=== PATIENT | female | born 1970 | race Caucasian/White ===

== ENCOUNTER 2019-06-17 18:04 | Emergency (ER) | payer MEDICAID, SELFPAY ==
--- NOTE | ~2019-06-17 | CT_ITS ---
EXAMINATION: CT abdomen pelvis w con EXAM DATE: 06/17/2019 20:55 INDICATION: Left lower quadrant abdominal pain. TECHNIQUE: Spiral CT of the abdomen and pelvis was performed following intravenous injection of 100 m L Omnipaque 350. Axial, coronal and sagittal images were reviewed. The dose-length product (DLP) fo r this examination was 1561.66 mGy-cm. The exposure was tailored according to patient size (auto mA exposure control), and iterative reconstruction (ASIR) was used as additional dose reduction techniqu e. There is no prior study for comparison. FINDINGS: The liver, spleen, adrenal glands and pancreas are unremarkable. The gallbladder is disten ded but otherwise unremarkable. There is no biliary duct dilation. Portal and splenic veins are pat ent. Kidneys enhance symmetrically. There is no hydronephrosis. There is 5 mm left inferior calycea l stone. The uterus is not identified and has likely been surgically resected. The bladder is unrem arkable. There is no retroperitoneal or pelvic lymphadenopathy. The appendix is normal. There is mild sigmoid colonic diverticulosis. There is no adjacent inflammat ory change to suggest diverticulitis. The stomach and small bowel are unremarkable. There is expecte d amount of colonic stool. No free intraperitoneal gas. The heart is normal in size. There are n o pericardial or pleural effusions. Small amount of basilar subsegmental atelectasis. There are no osteoblastic or osteolytic lesions identified. IMPRESSION: 1. No acute intra-abdominal findings. 2. Left nephrolithiasis. 3. Mild sigmoid diverticulosis. Reviewed, dictated and finalized at location G.
[2019-06-17 18:12] VITALS: BP 125/67; PULSE 88; RESP 16; TEMP 36.6; O2SAT 98
[2019-06-17 18:22] LABS: Basophils Percent Auto 0.2 % (0.2-1.2); Eosinophils Absolute Auto 0.1 K/mm3 (0-0.3); Eosinophils Percent Auto 0.6 % (0-4.4); Hemoglobin 12.3 g/dL (12.0-15.0); Immature Granulocyte Absolute 0.05 K/mm3 (0.00-0.031); Immature Granulocyte Percent A 0.4 % (0-0.5); Lymphocytes Absolute Auto 1.69 K/mm3 (0.9-3.2); Lymphocytes Percent Auto 15.1 % (18.3-44.2); Mean Corpuscular HGB Conc 32.4 g/dl (32-36); Mean Corpuscular Hemoglobin 32.1 pg (26-34); Mean Corpuscular Volume 99.2 fl (80-100); Mean Platelet Volume 9.5 fl (7.4-10.4); Monocytes Absolute Auto 0.7 K/mm3 (0.1-0.6); Monocytes Percent Auto 6.1 % (2.6-8.5); Neutrophils Absolute Auto 8.7 K/mm3 (1.3-6.7); Neutrophils Percent Auto 77.6 % (45.5-73.1); Platelet Count Result 230 k/mm3 (150-375); Red Blood Count 3.83 M/mm3 (4.2-5.4); Red Cell Distribution Width 13.3 % (11.5-14.5); White Blood Count 11.2 K/mm3 (4.5-10.0)
[2019-06-17 18:50] LABS: Alanine Aminotransferase 15 U/L (4-35); Alkaline Phosphatase 104 U/L (38-126); Aspartate Amino Transferase 21 U/L (14-36); Bilirubin,Total 0.3 mg/dL (0.2-1.3); Blood Urea Nitrogen 11 mg/dL (7-17); Calcium 8.8 mg/dL (8.4-10.2); Carbon Dioxide 29 mmol/L (22-30); Chloride 101 mmol/L (98-107); Estimated CRCL calculation 166 ml/min; Estimated Glomerular Filt Rate > 60; Glucose 145 mg/dL (65-105); Lipase 40 U/L (23-300); Sodium 133 mmol/L (137-145)
--- NOTE | 2019-06-17 20:14 | ED.ABDPAIN ---
HPI - Abdominal Pain General Chief Complaint: Abdominal Pain Stated Complaint: ABD PAIN, BOWEL/BLADDER ISSUES Time Seen by Provider: 06/17/19 19:40 Source: patient and family Mode of arrival: ambulatory Limitations: no limitations History of Present Illness HPI narrative: Patient is a 48-year-old female with a history of diverticulitis who presents for evaluation of suprapubic abdominal pain. Patient reports a weeklong history of intermittent worsening urinary frequency, hematuria, pressure-like pain in the lower abdomen, patient also has some left lower quadrant abdominal pain and she was concerning for possible diverticulitis flare. Patient denies fever or chills. No nausea or vomiting. No abdominal distention. Patient does report some mild loose stools without blood or mucus present. Related Data Allergies Allergy/AdvReac Type Severity Reaction Status Date / Time aspirin Allergy Unknown Nausea and Verified 06/17/19 21:18 Vomiting Review of Systems Review of Systems: Narrative: CONSTITUTIONAL: Denies fever, chills, or sweats. EYES: Denies visual changes, redness, or discharge. ENT: Denies rhinorrhea, congestion, sore throat, or otalgia. CARDIOVASCULAR: Denies chest pain, palpitations, or edema. RESPIRATORY: Denies cough or dyspnea. GASTROINTESTINAL: Reports abdominal pain, denies nausea or vomiting, reports intermittent loose stools GENITOURINARY: Reports dysuria, hematuria and frequency SKIN: Denies rash or itching. MUSCULOSKELETAL: Denies back pain, joint pain, or myalgia. NEUROLOGIC: Reports mild headache, denies numbness or weakness PMFSH Past Medical History Medical History (Updated 06/17/19 @ 22:00 by Maria Fernanda Madison MD) Breast abscess Diverticulitis Surgical History Surgical History (Updated 06/17/19 @ 20:16 by Maria Fernanda Madison MD) H/O: hysterectomy Family History Family History Mother Depression Family history of eczema Patient's mother is in good health Cerebrovascular accident Asthma Father Patient's father is in good health Family history of hearing loss Sibling Patient's sister is in good health Patient's brother is in good health Grandparent Family history of malignant neoplasm Other Family history of alcoholism Social History Social History (Updated 06/17/19 @ 20:16 by Maria Fernanda Madison MD) Smoking status: Current every day smoker Alcohol intake: current Substance use: current Substance use type: marijuana Living arrangements: with family Gender identity (if verbalized by the patient): Female Exam Narrative: Exam Narrative: GENERAL: Awake, alert, conversant HEAD: Normocephalic, atraumatic. EYES: 2+ PERRLA and EOMI. ENT: Nares clear, no rhinorrhea or epistaxis. Mucous membranes moist. NECK: Supple. CHEST: No respiratory distress, breathing even and non labored HEART: Regular rate, sinus rhythm ABDOMEN: Obese abdomen, non distended, mild suprapubic tenderness, no rebound, no guarding, nonrigid EXTREMITIES: Normal range of motion. No edema. SKIN: Warm, dry, no rash. NEURO:No focal deficits. Alert and oriented x3. Pt without focal neurological deficits. Bilateral upper and lower extremity strength is 5/5. No facial droop. 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 Intact distal sensation. Ambulatory with a narrow based steady gait. Course Course Emergency Course: Patient presented for evaluation of abdominal pain and urinary symptoms. Patient also reporting a mild headache without any neurological deficits. At the time of initial assessment, ABCs are intact and vital signs are stable. Physical exam shows mild left lower quadrant tenderness and suprapubic tenderness without rigidity and guarding. Laboratory results are reassuring. Patient was given a Tylenol for her headache, and imaging shows no acute intra-abdominal pathology. No UTI. Patient without any neuro deficits to suggest intracranial mass or hemo
[2019-06-17 20:19] LABS: Add Urine Microscopic? NO; Appearance Urine Clear (Clear); Bilirubin Urine Negative (Negative); Blood Urine Negative (Negative); Color Urine Straw (Yellow); Glucose Urine UA Negative (Negative); Ketones Urine Negative (Negative); Leukocyte Esterase Ur Negative LEU/UL (Negative); Nitrate Urine Negative (Negative); Protein Urine Negative (Negative); Specific Grav Ur 1.012 (1.001-1.035); Urobilinogen Urine Negative mg/dL (<2.0)
[2019-06-17] MEDS: ACETAMINOPHEN 500 MG TABLET 1000 MG PO (21:26)
[2019-06-17 21:40] VITALS: BP 131/103; PULSE 88; RESP 18; O2SAT 97
[2019-06-17 22:00] VITALS: BP 134/89; PULSE 89; RESP 18; TEMP 36.7; O2SAT 98
== END 2019-06-17 22:01 | disposition home or self-care (01) ==
PROVIDERS: Emergency Provider Emergency Medicine
DX: R10.32 Left lower quadrant pain (principal); G44.219 Episodic tension-type headache, not intractable; K57.90 Diverticulosis of intestine, part unspecified, without perforation or abscess without bleeding; N20.0 Calculus of kidney; F17.200 Nicotine dependence, unspecified, uncomplicated
CPT/HCPCS: 36415; 74177; 80053; 81003; 81025; 83690; 85025; 99284; A9270; Q9967

== ENCOUNTER 2019-12-10 12:02 | Outpatient (CLI) | payer OTHER, SELFPAY ==
--- NOTE | ~2019-12-10 | MMUS_ITS ---
EXAMINATION: MM diagnostic cyndie BI w ivette, US breast LT limited HISTORY: Left breast nipple discharge TECHNIQUE: Craniocaudal, mediolateral, and mediolateral oblique 3-D tomosynthesis images of the yohana ts were performed and synthetic 2-D images were generated. CAD analysis was submitted and interpreted . High resolution limited left breast ultrasound was performed. COMPARISON: No prior mammogram is currently available for comparison. FINDINGS: MAMMOGRAPHIC FINDINGS: Left breast: No mammographic correlate is identified for the patient's reported left nipple discharge . There is a 9 mm low-density oval, obscured mass of the lower inner breast at the 7:00 location 6 cm from the nipple. Right breast: There are grouped amorphous calcifications in the posterior third of the upper inner qu adrant of the breast at the 1:00 location 13 cm from the nipple. ULTRASOUND: No suspicious cystic or solid mass is identified to correlate with the left breast nipple discharge o r mammographically detected mass. IMPRESSION: 1. No specific mammographic or sonographic correlate is identified for the patient's left nipple disc harge Further evaluation at this time should be based on clinical assessment. Continued follow-up phy sical examination is recommended. 2. Suspicious right breast calcifications. Stereotactic biopsy is recommended. BI-RADS category 4, suspicious findings. Reviewed, dictated and finalized at location A. IMPRESSION: 1. No specific mammographic or sonographic correlate is identified for the sarah ent's left nipple discharge Further evaluation at this time should be based on clinical assessment. Continued follow-up physical examination is recommended. 2. Suspicious right breast calcifications. Stereotactic biopsy is recommended. BI-RADS category 4, suspicious findings.
[2019-12-10 12:48] LABS: Basophils Percent Auto 0.5 % (0.2-1.2); Eosinophils Absolute Auto 0.1 K/mm3 (0-0.3); Eosinophils Percent Auto 1.2 % (0-4.4); Hematocrit 42.5 % (37.0-47.0); Hemoglobin 14.1 g/dL (12.0-15.0); Immature Granulocyte Absolute 0.02 K/mm3 (0.00-0.031); Immature Granulocyte Percent A 0.2 % (0-0.5); Lymphocytes Percent Auto 34.4 % (18.3-44.2); Mean Corpuscular HGB Conc 33.2 g/dl (32-36); Mean Corpuscular Hemoglobin 32.7 pg (26-34); Mean Corpuscular Volume 98.6 fl (80-100); Mean Platelet Volume 9.1 fl (7.4-10.4); Monocytes Absolute Auto 0.5 K/mm3 (0.1-0.6); Neutrophils Absolute Auto 4.7 K/mm3 (1.3-6.7); Neutrophils Percent Auto 57.7 % (45.5-73.1); Platelet Count Result 269 k/mm3 (150-375); Red Blood Count 4.31 M/mm3 (4.2-5.4); Red Cell Distribution Width 12.7 % (11.5-14.5); White Blood Count 8.2 K/mm3 (4.5-10.0)
[2019-12-10 13:02] LABS: Anion Gap 5 mmol/L (8-16); Blood Urea Nitrogen 11 mg/dL (7-17); CRP 0.8 mg/dL (<1.0); Calcium 8.9 mg/dL (8.4-10.2); Carbon Dioxide 30 mmol/L (22-30); Chloride 107 mmol/L (98-107); Estimated Glomerular Filt Rate > 60; Glucose 100 mg/dL (65-105); Potassium 4.3 mmol/L (3.4-5.0); Rheumatoid Factor < 8.6 IU/ML (<12); Sodium 142 mmol/L (137-145)
[2019-12-10 13:14] LABS: Erythrocyte Sedimentation Rate 19 mm/hr (0-20)
[2019-12-14 11:26] LABS: Anti Cyclic Citrullinated Pept <16 Units (<20)
== END 2019-12-10 12:03 | disposition home or self-care (01) ==
PROVIDERS: PCP Internal Medicine Infectious Disease; Visit Provider Internal Medicine Infectious Disease
DX: N63.10 Unspecified lump in the right breast, unspecified quadrant (principal); M25.50 Pain in unspecified joint; Z79.899 Other long term (current) drug therapy
CPT/HCPCS: 36415; 76642; 77062; 77066; 80048; 85025; 85652; 86038; 86140; 86200; 86430; G0279

== ENCOUNTER 2019-12-29 10:03 | Outpatient (CLI) | payer OTHER, SELFPAY ==
--- NOTE | ~2019-12-29 | XR_ITS ---
EXAMINATION: XR hand LT min 3V, XR wrist LT min 3V EXAM DATE: 12/29/2019 11:03 (accession [id number]), 12/29/2019 11:04 (accession [id number]) INDICATION: No known recent injury provided at this time. Pain of the left hand and wrist. TECHNIQUE: Left hand frontal, lateral and oblique projections obtained and reviewed. Left wrist fron valentín, frontal with ulnar deviation, oblique and lateral projections obtained and reviewed. There is n o prior study for comparison. FINDINGS: Left metacarpal bones are unremarkable. Left wrist scapholunate joint space is maintained . There is moderate 5th distal interphalangeal joint, mild 1st interphalangeal joint primary osteoart hritis. There are no bony erosions identified. There are no acute fractures or dislocations identifi ed. There is no subcutaneous gas. The soft tissue is unremarkable. There are no radiopaque foreig n bodies. 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 Reviewed, dictated and finalized at location A. 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
--- NOTE | ~2019-12-29 | XR_ITS ---
EXAMINATION: XR hand RT min 3V, XR wrist RT min 3V EXAM DATE: 12/29/2019 11:04 INDICATION: No known recent injury provided at this time. Pain of the right hand, wrist. TECHNIQUE: Right hand frontal, lateral and oblique projections obtained and reviewed. Right wrist fro ntal, frontal with ulnar deviation, oblique and lateral projections obtained and reviewed. There is no prior study for comparison. FINDINGS: Right metacarpal bones are unremarkable. Right wrist scapholunate joint space is maintain ed. There is mild 1st interphalangeal and metacarpophalangeal primary osteoarthritis. There are no bony erosions identified. There are no acute fractures or dislocations identified. There is no subcutaneo us gas. The soft tissue is unremarkable. There are no radiopaque foreign bodies. IMPRESSION: Mild 1st interphalangeal joint osteoarthritis. Reviewed, dictated and finalized at location A. S DEALER IMPRESSION: Mild 1st interphalangeal joint osteoarthritis.
--- NOTE | ~2019-12-29 | XR_ITS ---
EXAMINATION: XR shoulder RT min 2V EXAM DATE: 12/29/2019 11:03 INDICATION: Right shoulder pain, no known recent injury. TECHNIQUE: The following right shoulder projections obtained: frontal projection with internal rotati on, frontal projection with external rotation, Grashey, and axillary (4+ views). There is no prior s tudy for comparison. FINDINGS: No evidence of right shoulder rotator cuff calcific tendinosis. There is mild glenohumer al and acromioclavicular joint primary osteoarthritis. There are no acute fractures or dislocations i dentified. There is no subcutaneous gas. The soft tissue is unremarkable. There are no radiopaque foreign bodies. Probable old right 4th and 5th rib fractures. IMPRESSION: Mild right shoulder osteoarthritis. Reviewed, dictated and finalized at location A. TING FRAME CHANGER
--- NOTE | ~2019-12-29 | XR_ITS ---
EXAMINATION: XR knee LT min 4V EXAM DATE: 12/29/2019 11:03 INDICATION: No known recent injury provided at this time. Pain of the left knee. TECHNIQUE: Left knee lateral, frontal AP, frontal PA tunnel, sunrise projections. There is no prior study for comparison. FINDINGS: No evidence osteochondral defect or joint body in the left knee joint. There is mild fabian llofemoral and medial tibiofemoral compartment primary osteoarthritis. No joint effusion. There are no acute fractures or dislocations identified. There is no subcutaneous gas. The soft tissue is unr emarkable. There are no radiopaque foreign bodies. IMPRESSION: Mild left knee osteoarthritis. Reviewed, dictated and finalized at location A. RESSED GAS PLANT WORKER
--- NOTE | ~2019-12-29 | XR_ITS ---
EXAMINATION: XR ankle LT min 3V, XR foot LT min 3V EXAM DATE: 12/29/2019 11:03 (accession [id number]), 12/29/2019 11:04 (accession [id number]) INDICATION: Chronic left foot, ankle pain. TECHNIQUE: Left foot dorsoplantar, lateral and oblique projections obtained and reviewed. Left ankle frontal, lateral and oblique projections obtained and reviewed. There is no prior study for compari son. FINDINGS: Left metatarsal bones unremarkable. The left ankle mortise appears intact. There is sm all inferior calcaneal spur. There is mild 1st metatarsophalangeal and polyarticular midfoot primary osteoarthritis. There are no acute fractures or dislocations identified. There is no subcutaneous ga s. The soft tissue is unremarkable. There are no radiopaque foreign bodies. IMPRESSION: Mild polyarticular left foot and ankle osteoarthritis. Reviewed, dictated and finalized at location A. WINDER IMPRESSION: Mild polyarticular left foot and ankle osteoarthritis.
--- NOTE | ~2019-12-29 | XR_ITS ---
EXAMINATION: XR ankle RT min 3V, XR foot RT min 3V EXAM DATE: 12/29/2019 11:03 (accession [id number]), 12/29/2019 11:04 (accession [id number]) INDICATION: Chronic right foot and ankle pain. TECHNIQUE: Right foot dorsoplantar, lateral and oblique projections obtained and reviewed. Right ank le frontal, lateral and oblique projections obtained and reviewed. There is no prior study for too oden. FINDINGS: Right metatarsal bones unremarkable. The right ankle mortise appears intact. There are n o acute fractures or dislocations identified. There is no subcutaneous gas. The soft tissue is unre markable. There are no radiopaque foreign bodies. Small calcaneal inferior spur. There is mild 1st metatarsophalangeal joint and polyarticular midfoot primary osteoarthritis. IMPRESSION: Mild polyarticular right foot, ankle osteoarthritis. Reviewed, dictated and finalized at location A. CTOR DIGITAL STRATEGY IMPRESSION: Mild polyarticular right foot, ankle osteoarthritis.
--- NOTE | ~2019-12-29 | XR_ITS ---
EXAMINATION: XR knee RT min 4V EXAM DATE: 12/29/2019 11:03 INDICATION: No known recent injury provided at this time. Pain of the right knee. TECHNIQUE: Right knee lateral, frontal AP, frontal PA tunnel, sunrise projections. There is no prior study for comparison. FINDINGS: No evidence osteochondral defect or joint body in the right knee joint. No joint effusio n. There is mild tricompartmental primary osteoarthritis. There are no acute fractures or dislocation s identified. There is no subcutaneous gas. The soft tissue is unremarkable. There are no radiopa que foreign bodies. IMPRESSION: Mild right knee osteoarthritis. Reviewed, dictated and finalized at location A. ST SUSPECT
== END 2019-12-29 10:04 | disposition home or self-care (01) ==
LOC: ANHIMG 10:12
PROVIDERS: PCP Internal Medicine Infectious Disease; Visit Provider Internal Medicine Infectious Disease
DX: M79.10 Myalgia, unspecified site (principal); M89.49 Other hypertrophic osteoarthropathy, multiple sites
CPT/HCPCS: 73030; 73110; 73130; 73564; 73610; 73630

== ENCOUNTER 2020-12-13 13:34 | Inpatient (IN) | payer OTHER, SELFPAY ==
[2020-12-13] VITALS (20 sets, daily range): BP systolic 107–154; BP diastolic 64–109; PULSE 78–91; RESP 12–20; TEMP 36.1–36.8; O2SAT 97–100; BMI 52.0
--- NOTE | ~2020-12-13 | XR_ITS ---
XR chest 2V DATE: 12/13/2020 15:04 INDICATION: Chest pain, shortness of breath, dizziness. TECHNIQUE: AP and lateral views COMPARISON: 08/22/2010 2 view chest FINDINGS: Normal heart size. No hilar or mediastinal enlargement. No pulmonary infiltrate or consolid ation, pleural effusion or pulmonary vascular congestion or pneumothorax. Diffuse idiopathic skeletal hyperostosis of the thoracic spine. IMPRESSION: No active cardiopulmonary disease Reviewed, dictated and finalized at location A.
--- NOTE | ~2020-12-13 | CT_ITS ---
EXAMINATION: CT brain wo con INDICATION: Headache COMPARISON: None TECHNIQUE: Standard unenhanced head CT. The dose-length product (DLP) was 605.33 mGy-cm. The mA was a djusted according to patient size. Iterative reconstruction technique was employed. FINDINGS: There is no intracranial hemorrhage, acute infarction, or abnormal mass lesion. The ventric les are normal. There is no abnormal mass effect or midline shift. The alvarado-white matter differentiat ion is normal. The basal cisterns are patent. The orbits are normal. The paranasal sinuses, mastoids and calvarium are normal. IMPRESSION: 1. No acute intracranial abnormality. Reviewed, dictated and finalized at location B.
--- NOTE | ~2020-12-13 | CT_ITS ---
EXAMINATION: CT chest abdomen pelvis wo con DATE: 12/15/2020 22:49 INDICATION: Chest pain and back pain for 2 days TECHNIQUE: Computed tomography (CT) of the chest, abdomen, and pelvis was performed without intraveno us contrast. Automated exposure control and iterative reconstruction technique were employed. Exam do se: 1846.90 mGy-cm total exam DLP. COMPARISON: 12/30/2020 AP and lateral chest 06/17/2019 CT abdomen pelvis FINDINGS: CHEST CT: There are scattered focal small peripheral areas of atelectasis and/or scarring bilaterally. No pulmonary infiltrate or consolidation or pulmonary mass lesion. No hilar or mediastinal mass lesion or lymphadenopathy. No thoracic aortic aneurysm. Normal heart siz e. No pericardial or pleural effusion. Diffuse idiopathic skeletal hyperostosis of the thoracic spine. ABDOMEN/PELVIS CT: The liver, gallbladder, bile ducts, spleen, pancreas and pancreatic duct are unremarkable. Normal morphology of the adrenal glands. 5 mm nonobstructing lower pole left renal calculus. No other urinary tract calculus or hydroureterone phrosis. The urinary bladder is unremarkable. Status post hysterectomy. Normal caliber of the abdominal aorta. No intraperitoneal or retroperitoneal or pelvic mass lesion or adenopathy or ascites. Normal appendix. There are multiple diverticula of the sigmoid colon; no CT evidence of diverticulitis. No bowel obstr uction or bowel wall thickening, pneumatosis or intraperitoneal free air. Very small fat-containing umbilical hernia. IMPRESSION: 5 mm nonobstructing lower pole left renal calculus Status post hysterectomy Diverticulosis of the sigmoid colon; no CT evidence of diverticulitis Reviewed, dictated and finalized at Location A. Reviewed, dictated and finalized at location A.
--- NOTE | 2020-12-13 13:49 | ECG_ITS ---
Measurements Intervals [place] Rate: 80 P: 16 DE: 153 QRS: 42 QRSD: 101 T: 51 QT: 388 QTc: 448 Interpretive Statements SINUS RHYTHM DELAYED PRECORDIAL R/S TRANSITION BASELINE WANDER- V1-V2 BORDERLINE ECG Electronically Signed On 12-13-2020 14:21:40 CDT by Ruben Damico D.O.
[2020-12-13 14:16] LABS: Basophils Percent Auto 0.4 % (0.2-1.2); Eosinophils Absolute Auto 0.1 K/mm3 (0-0.3); Hematocrit 44.8 % (37.0-47.0); Hemoglobin 14.7 g/dL (12.0-15.0); Immature Granulocyte Absolute 0.02 K/mm3 (0.00-0.031); Immature Granulocyte Percent A 0.2 % (0-0.5); Lymphocytes Percent Auto 34.2 % (18.3-44.2); Mean Corpuscular HGB Conc 32.8 g/dl (32-36); Mean Corpuscular Hemoglobin 32.6 pg (26-34); Mean Corpuscular Volume 99.3 fl (80-100); Mean Platelet Volume 9.4 fl (7.4-10.4); Monocytes Absolute Auto 0.7 K/mm3 (0.1-0.6); Monocytes Percent Auto 6.7 % (2.6-8.5); Neutrophils Absolute Auto 6.4 K/mm3 (1.3-6.7); Neutrophils Percent Auto 57.5 % (45.5-73.1); Platelet Count Result 299 k/mm3 (150-375); Red Blood Count 4.51 M/mm3 (4.2-5.4); Red Cell Distribution Width 12.8 % (11.5-14.5); White Blood Count 11.1 K/mm3 (4.5-10.0)
[2020-12-13 14:31] LABS: INR 0.9
[2020-12-13 14:32] LABS: Partial Thromboplastin Time 28.4 SECONDS (22.3-36.8)
[2020-12-13 14:34] LABS: Anion Gap 9 mmol/L (8-16); Blood Urea Nitrogen 12 mg/dL (7-17); Calcium 9.5 mg/dL (8.4-10.2); Carbon Dioxide 27 mmol/L (22-30); Chloride 105 mmol/L (98-107); Estimated CRCL calculation 112 ml/min; Estimated Glomerular Filt Rate > 60; Glucose 113 mg/dL (65-110); Potassium 4.3 mmol/L (3.4-5.0); Sodium 141 mmol/L (137-145)
[2020-12-13 14:45] LABS: Troponin I 0.013 ng/mL (0.000-0.034)
[2020-12-13] MEDS: SODIUM CHLORIDE 0.9% IV 1,000 ML 999 ML IV CONT (15:45)
[2020-12-13] MEDS: ASPIRIN 81 MG CHEWABLE TABLET 324 MG PO (15:45)
[2020-12-13] MEDS: KETOROLAC 30 MG/ML VIAL (*BKC) IV PUSH (15:45)
[2020-12-13] MEDS: MECLIZINE HCL 25 MG TABLET PO (15:53)
--- NOTE | 2020-12-13 16:34 | ED.CHESTPAIN ---
HPI - Chest Pain General Chief Complaint: Chest Pain Stated Complaint: chest pain Time Seen by Provider: 12/13/20 14:23 History of Present Illness HPI narrative: Patient is a 50-year-old female who presents to the ER with multiple issues. First patient reports that she has been having dizziness and nausea in the mornings for the last 2 weeks. Symptoms continued today however around 1230 patient developed chest pain that went into her neck as well as her left arm that was squeezing in nature. Waxes and wanes in intensity. No alleviating factors. Patient also has some concerns about possible seizure-like activity that she has been having. Apparently when she stands up her right arm will start to perform a karate chopping motion in front of her. She will also then started to have visual and auditory hallucinations. Patient believes that she is unconscious during these events. Related Data Allergies Allergy/AdvReac Type Severity Reaction Status Date / Time aspirin AdvReac Unknown Nausea and Verified 12/13/20 14:19 Vomiting Review of Systems Review of Systems: All systems reviewed & are unremarkable except as noted in HPI and below Constitutional: Constitutional: Denies chills, Denies fever(s) and Denies weakness ENT: Reports dizziness, Denies nasal congestion and Denies sore throat Cardiovascular: Cardiovascular: Reports chest pain, Denies rapid heart rate and Reports radiating jaw, neck or arm pain Respiratory: Respiratory: Denies cough, Denies dyspnea and Denies wheezing Gastrointestinal: Gastrointestinal: Reports nausea and Denies vomiting Neurologic: Reports confusion, Reports syncope, Reports headache(s), Denies focal weakness and Denies numbness Psychiatric: Comments: Auditory and visual hallucinations PMFSH Past Medical History Medical History (Updated 12/13/20 @ 20:59 by Bryant Acosta MD) Anxiety Breast abscess Recurrent staph infections, per patient report, dating back to 2006. Diverticulitis Hypertension Migraine headache Nicotine dependence Seizure (2002) Shingles Surgical History Surgical History (Updated 12/13/20 @ 20:42 by Erica Britton PA-C) History of dilation and curettage History of hysterectomy History of incision and drainage Breast abscess. History of laparoscopy With destruction of right ovarian cyst. Family History Family History Mother Depression Family history of eczema Patient's mother is in good health Cerebrovascular accident Asthma Father Patient's father is in good health Family history of hearing loss Sibling Patient's sister is in good health Patient's brother is in good health Grandparent Family history of malignant neoplasm Other Family history of alcoholism Social History Social History (Updated 12/13/20 @ 20:43 by Erica Britton PA-C) Social History: Surrogate decision maker: Kary Moreno, partner. Code status: Full code. Smoking packs per day: 0.75 Smoking cigarettes per day: 15.0 Years smoked: 30 Smoking pack-years: 22.50 Smoking status: Current every day smoker Alcohol intake: current Drinks per week: 20 Alcohol use details: Beer. Substance use: current Substance use type: marijuana Additional living arrangements comments: The patient lives in [place] with her partner. She has an adult daughter. 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 Exam Narrative: GENERAL: Uncomfortable appearing, laying in bed with wet washrag's on her head and chest, well-nourished. HEAD: Normocephalic, atraumatic. EYES: PERRL and EOMI. left gaze nystagmus. ENT: Mucous membranes moist. TMs normal bilaterally. CHEST: Clear to auscultation. No respiratory distress. HEART: Regular rate and rhythm. Normal peripheral pulses. ABDOMEN: Soft, nontender, nondistended. EXTREMITIES: Normal range of motion. No edema. SKIN: Warm, dry, no r
[2020-12-13] MEDS: NITROGLYCERIN SL 0.4 MG TABLET SUBLINGUAL (17:17)
--- NOTE | 2020-12-13 17:25 | PM.IMHP ---
H&P: HPI History of Present Illness Date/Time: 12/13/20 17:25 Chief Complaint: Chest pain. Narrative: This is a 50-year-old female smoker with hypertension, migraine headaches, and anxiety who presented to the emergency department earlier today via private vehicle for evaluation of chest pain. She has not been feeling great for the past 4 days or so with vague symptoms including random episodes of dizziness, nausea, and mild shortness of breath. She had a routine appointment with her primary care provider 2 days ago on Friday and at that time she was started on metoprolol for mild blood pressure elevation and hydroxyzine for her anxiety. She has continued to have similar symptoms since that time and today not long prior to arrival she developed a pressure or squeezing like sensation in the mid chest region radiating somewhat up into the neck and left arm. She was also feeling dizzy and short of breath when that occurred and she initially attributed her symptoms to severe anxiety as she felt a bit out of it and somewhat tremulous as well. Initial troponin drawn in the emergency department was within normal limits however her 3 hour did jump I and she is being admitted in this setting. She has no known history of coronary artery disease but both of her parents from an [place] and many family members on her paternal side have coronary disease. She chronically has swelling in her lower legs and that is unchanged. No syncope or near syncope. She denies pleuritic pain, palpitations, orthopnea, and PND. No vomiting or sweats. Review of Systems Review of Systems: Twelve systems were reviewed. No fever, chills, or sweats. No recent cold or flu symptoms. Patient has a history of single seizure in 2002 but thinks she may have had 2 seizures in the last couple of weeks which started out as upper extremity shaking associated with hallucinations/auras followed by brief episodes of unresponsiveness. She has not had any falls and denies injury. She was not doing anything in particular when these events occurred. No tongue bite or bowel or bladder incontinence. Patient has issues with recurrent infections in her left breast and fairly recently she once again started having purulent drainage from around the left nipple and she has been taking sulfamethoxazole/trimethoprim. Except as documented, all other systems were reviewed and are negative. [facility] Past Medical History Medical History (Updated 12/13/20 @ 20:48 by Erica G. Gerling, PA-C) Anxiety Breast abscess Recurrent staph infections, per patient report, dating back to 2006. Diverticulitis Hypertension Migraine headache Nicotine dependence Seizure (2002) Shingles Surgical History Surgical History (Updated 12/13/20 @ 20:42 by Erica Britton PA-C) History of dilation and curettage History of hysterectomy History of incision and drainage Breast abscess. History of laparoscopy With destruction of right ovarian cyst. Family History Family History Mother Depression Family history of eczema Patient's mother is in good health Cerebrovascular accident Asthma Father Patient's father is in good health Family history of hearing loss Sibling Patient's sister is in good health Patient's brother is in good health Grandparent Family history of malignant neoplasm Other Family history of alcoholism Social History Social History (Updated 12/13/20 @ 20:43 by Erica Britton PA-C) Social History: Surrogate decision maker: Kary Tiffanie, partner. Code status: Full code. Smoking packs per day: 0.75 Smoking cigarettes per day: 15.0 Years smoked: 30 Smoking pack-years: 22.50 Smoking status: Current every day smoker Alcohol intake: current Drinks per week: 20 Alcohol use details: Beer. Substance use: current Substance use type: marijuana Additional living arrangements comments: The patient lives in [facility]
--- NOTE | 2020-12-13 17:42 | PC.NURSE ---
1725 2nd nitro given 1735 3rd nitro given
[2020-12-13 18:05] LABS: Troponin I 0.606 ng/mL (0.000-0.034)
--- NOTE | 2020-12-13 18:05 | ECG_ITS ---
Measurements Intervals [place] Rate: 85 P: 66 GA: 150 QRS: 65 QRSD: 102 T: 120 QT: 387 QTc: 461 Interpretive Statements SINUS RHYTHM POSSIBLE LEFT ATRIAL ENLARGEMENT DELAYED PRECORDIAL R/S TRANSITION BORDERLINE T WAVE ABNORMALITY- ANTEROLAT/HIGH LAT LEADS BASELINE ARTIFACT- I, II, III, AVR, AVL, AVF, V1-V6 BORDERLINE ECG Electronically Signed On 12-13-2020 20:03:02 CDT by Ruben Damico D.O.
[2020-12-13] MEDS: HEPARIN SODIUM 5,000 UNITS/ML VIAL 4000 UNITS IV PUSH (18:51)
[2020-12-13] MEDS: HEPARIN SOD/D5W 100 UNITS/ML 25,000 UNITS/250 ML BAG 9 UNITS IV CONT (18:52)
--- NOTE | 2020-12-13 19:15 | PC.NURSE ---
Report given to YAYA Wong
[2020-12-13 19:37] LABS: Basophils Percent Auto 0.2 % (0.2-1.2); Eosinophils Percent Auto 0.3 % (0-4.4); Hematocrit 42.9 % (37.0-47.0); Immature Granulocyte Absolute 0.05 K/mm3 (0.00-0.031); Immature Granulocyte Percent A 0.4 % (0-0.5); Lymphocytes Absolute Auto 2.92 K/mm3 (0.9-3.2); Lymphocytes Percent Auto 23.2 % (18.3-44.2); Mean Corpuscular HGB Conc 32.6 g/dl (32-36); Mean Corpuscular Hemoglobin 32.7 pg (26-34); Mean Corpuscular Volume 100.2 fl (80-100); Monocytes Absolute Auto 0.6 K/mm3 (0.1-0.6); Monocytes Percent Auto 4.4 % (2.6-8.5); Neutrophils Percent Auto 71.5 % (45.5-73.1); Platelet Count Result 278 k/mm3 (150-375); Prothrombin Time 13.5 Seconds (11.1-14.7); Red Blood Count 4.28 M/mm3 (4.2-5.4); White Blood Count 12.6 K/mm3 (4.5-10.0)
[2020-12-13 19:46] LABS: Troponin I 0.824 ng/mL (0.000-0.034)
[2020-12-13] MEDS: MORPHINE SULFATE (*CRX) 4 MG/ML INJ IV PUSH (19:48)
--- NOTE | 2020-12-13 20:38 | ADMGEN ---
This patient, Keely Domingo, was admitted to IMU Room 202-01 at 2020. Patient/family oriented to hospital policies and general routines including ID bracelet, bed and alarms, visiting hours, pain management, procedures, bathroom and other care routines, personal items, smoking policy, room service/diet, and visiting hours. Information on how to activate the Rapid Response Team has been discussed. Patient/Family are encouraged to report perceived risks to care and to ask questions if they do not understand what they are told or what they should do.
[2020-12-13 20:51] LABS: Partial Thromboplastin Time > 200.0 SECONDS (22.3-36.8)
[2020-12-14] VITALS (15 sets, daily range): BP systolic 88–137; BP diastolic 68–77; PULSE 73–95; RESP 16–20; TEMP 36.4–36.7; O2SAT 91–99
[2020-12-14 06:21] LABS: Basophils Percent Auto 0.4 % (0.2-1.2); Eosinophils Absolute Auto 0.1 K/mm3 (0-0.3); Eosinophils Percent Auto 1.2 % (0-4.4); Hematocrit 40.2 % (37.0-47.0); Hemoglobin 12.9 g/dL (12.0-15.0); Immature Granulocyte Absolute 0.03 K/mm3 (0.00-0.031); Immature Granulocyte Percent A 0.3 % (0-0.5); Lymphocytes Absolute Auto 2.87 K/mm3 (0.9-3.2); Lymphocytes Percent Auto 32.2 % (18.3-44.2); Mean Corpuscular HGB Conc 32.1 g/dl (32-36); Mean Corpuscular Volume 102.8 fl (80-100); Mean Platelet Volume 9.6 fl (7.4-10.4); Monocytes Absolute Auto 0.5 K/mm3 (0.1-0.6); Monocytes Percent Auto 5.4 % (2.6-8.5); Neutrophils Absolute Auto 5.4 K/mm3 (1.3-6.7); Neutrophils Percent Auto 60.5 % (45.5-73.1); Platelet Count Result 240 k/mm3 (150-375); Red Blood Count 3.91 M/mm3 (4.2-5.4); Red Cell Distribution Width 12.8 % (11.5-14.5); White Blood Count 8.9 K/mm3 (4.5-10.0)
[2020-12-14 06:24] LABS: Alanine Aminotransferase 21 U/L (4-35); Albumin Level 3.6 g/dL (3.5-5.1); Alkaline Phosphatase 76 U/L (38-126); Anion Gap 4 mmol/L (8-16); Aspartate Amino Transferase 26 U/L (14-36); Bilirubin,Total 0.5 mg/dL (0.2-1.3); Blood Urea Nitrogen 10 mg/dL (7-17); Calcium 8.5 mg/dL (8.4-10.2); Carbon Dioxide 28 mmol/L (22-30); Chloride 108 mmol/L (98-107); Cholesterol 201 mg/dL (0-200); Estimated CRCL calculation 114 ml/min; Estimated Glomerular Filt Rate > 60; Glucose 104 mg/dL (65-110); HDL Direct 55 mg/dL; Magnesium 1.9 mg/dL (1.6-2.3); Potassium 3.9 mmol/L (3.4-5.0); Sodium 140 mmol/L (137-145); Triglycerides 356 mg/dL (<150)
[2020-12-14 06:33] LABS: Partial Thromboplastin Time 32.2 SECONDS (22.3-36.8)
[2020-12-14 06:34] LABS: LDL Cholesterol Direct 98 mg/dL
[2020-12-14] MEDS: HEPARIN SODIUM 5,000 UNITS/ML VIAL 4000 UNITS IV PUSH ×2 (08:09→15:06)
[2020-12-14] MEDS: TOPIRAMATE 25 MG TABLET PO ×2 (08:09→20:43)
[2020-12-14] MEDS: DICYCLOMINE HCL 10 MG CAPSULE PO ×2 (08:09→16:58)
[2020-12-14] MEDS: METOPROLOL TARTRATE 25 MG TABLET PO ×2 (08:09→20:43)
--- NOTE | 2020-12-14 09:46 | PM.CNCAR ---
Assessment and Plan Additional Plan -NSTEMI -chronic tobacco use -alcoholism -morbid obesity This is 50-year-old lady who has history of chronic tobacco use and alcoholism who presents with central chest pain. Troponins elevated consistent with non ST elevation myocardial infarction. Risks and benefits of cardiac catheterization discussed with the patient she has to proceed. We will plan for catheterization today History of Present Illness History of Present Illness Consult date/time: Date of service: 12/14/20 09:46 Requesting physician: Bryant Acosta MD Consult reason: chest pain Reason For Visit: chest pain, vertigo Narrative: This is 50-year-old female with past history of tobacco use, hypertension, migraines was brought into the hospital because of chest pain. Intermittent central chest pain described as heaviness for 1 week worse yesterday associated with bilateral arm heaviness as well as pain in the jaw. Associated with shortness of breath. Denies lower limb edema, dizziness, syncope. She has smokes daily. She drinks 21 beers a week. She states multiple family members on both sides had coronary artery disease. Troponin 0.13, 0.6, 0.8, EKG via as myself was normal but the 2nd EKG shows T inversion leads 1 and aVL. Cr 0.6, CXR reviewed and analyzed myself looks unremarkable Review of Systems Constitutional: Constitutional: Denies chills, Denies fever(s) and Denies poor appetite Eyes: Eyes: Denies eye discharge, Denies loss of vision, Denies eye pain and Denies photophobia ENT: Denies dizziness, Denies epistaxis, Denies nasal congestion and Denies sore throat Cardiovascular: Cardiovascular: Reports chest pain, Denies syncope, Denies pedal edema, Denies leg edema, Denies palpitations, Denies dyspnea, Reports dyspnea on exertion and Denies orthopnea Respiratory: Respiratory: Denies cough, Denies dyspnea, Reports dyspnea on exertion and Denies wheezing Gastrointestinal: Gastrointestinal: Denies abdominal pain, Denies diarrhea, Denies nausea and Denies vomiting Genitourinary: Genitourinary: Denies hematuria, Denies genital lesions and Denies dysuria Musculoskeletal: Musculoskeletal: Denies arthralgias, Denies joint swelling and Denies numbness Integumentary/Breasts: Skin/Breast: Denies pruritus and Denies rash Neurologic: Denies dizziness, Denies syncope, Denies loss of vision and Denies numbness Psychiatric: Psychiatric: Denies anxiety and Denies depression Endocrine: Endocrine: Denies cold intolerance, Denies heat intolerance and Denies palpitations Hematologic/Lymphatic: Hematologic/Lymphatic: Denies easy bleeding and Denies easy bruising Allergic/Immunologic: Allergic/Immunologic: Denies urticaria and Denies wheezing PMFSH Past Medical History Medical History Anxiety Breast abscess Recurrent staph infections, per patient report, dating back to 2006. Diverticulitis Hypertension Migraine headache Nicotine dependence Seizure (2002) Shingles Surgical History Surgical History History of dilation and curettage History of hysterectomy History of incision and drainage Breast abscess. History of laparoscopy With destruction of right ovarian cyst. Family History Family History Mother Depression Family history of eczema Patient's mother is in good health Cerebrovascular accident Asthma Father Patient's father is in good health Family history of hearing loss Sibling Patient's sister is in good health Patient's brother is in good health Grandparent Family history of malignant neoplasm Other Family history of alcoholism Social History Social History Social History: Surrogate decision maker: Kary Moreno, partner. Code status: Full code. Smoking packs per day: 0.75
[2020-12-14] MEDS: FAMOTIDINE 20 MG TABLET PO ×2 (10:58→20:42)
[2020-12-14] MEDS: ASPIRIN 81 MG ENTERIC TABLET PO (10:58)
--- NOTE | 2020-12-14 12:11 | PM.IMPN ---
Progress Note: A&P Assessment and Plan (1) Non-ST elevated myocardial infarction (non-STEMI): Code(s): I21.4 - Non-ST elevation (NSTEMI) myocardial infarction Status: Acute Assessment and Plan: Patient presents with chest pain. Troponin elevated to 0.82. EKG shows no acute findings but does show borderline T-wave changes. Cardiology has been consulted with plans for heart catheterization later today. Continue aspirin and metoprolol. Add Lipitor. (2) Hypertension: Code(s): I10 - Essential (primary) hypertension Status: Acute Assessment and Plan: Patient's blood pressure was reviewed on 12/14 Blood pressure remains well controlled. Will continue current medications. (3) Nicotine dependence: Code(s): F17.200 - Nicotine dependence, unspecified, uncomplicated Status: Acute Assessment and Plan: Patient was educated about the benefits of smoking cessation. (4) Left breast abscess: Code(s): N61.1 - Abscess of the breast and nipple Status: Acute Assessment and Plan: No evidence of breast abscess noted at this time. Suspect this is more sebaceous cyst that is drained. Agree with the primary care doctor request for patient follow-up with either breast surgeon or general surgeon to have these evaluated possibly excised. Patient voiced understanding of this. (5) Seizure: Onset Date: 2002 Code(s): R56.9 - Unspecified convulsions Status: Inactive Assessment and Plan: Patient has history of seizures. Patient is on treatment for seizures. She states the Topamax for headaches. Patient has been seizure-free for over 10 years. She has had some neurologic changes with left arm tremors. Consider focal seizures. Will consult Neurology. Check MRI and EEG. (6) Anxiety: Code(s): F41.9 - Anxiety disorder, unspecified Status: Acute Assessment and Plan: Mood remains stable. (7) DVT prophylaxis: Code(s): Z29.9 - Encounter for prophylactic measures, unspecified Status: Acute Assessment and Plan: Heparin drip Subjective Date/time seen: 12/14/20 12:11 Interval history: 50yo male with hx of seizure here for chest pain. Approximately 2 days prior to admission, she developed n/v mostly in the morning with SOB but no CP. On the day of admission, she again had these symptoms but then developed chest pain substernal that radiated to the jaw and left arm. She smokes 1/2ppd. She has HTN but not DM or HLD. She also has right breast cysts that drain whitish material associated with strong odor; left breast near the nipple also drains whitish mat'l but with blood occasionally. She has been told by her doctor to follow up wit a surgeon but has not done so yet. She also has had 3 episodes of left arm shaking and one episode when she felt like she spoke to a colleague but did not. She has hx of seizure but last one was 2004 - she is on Topamax for her headaches. She also states she fractures her right foot 1 month ago but pain much better (xray done elsewhere). Last mammogram was January 2020. Exam Narrative: AF 97.9 121/75 77 18 96% ra Gen - NARD Chest -few basilar rhonchi otherwise clear. Breast - small nodule noted around 9oclock periaureolar region but no erythema, drainage or open wounds. CV - RRR S1/S2. Telemetry showing PVCs. Abd - Soft, NT/ND, Positive BS Ext - No pedal edema Neuro - Alert and oriented. Nonfocal exam. Psych - Nml mood and affect Skin - Warm and dry Objective Data Vital Signs Vital Signs: Vital Signs - 24 hr 12/13/20 13:49 12/13/20 14:19 12/13/20 14:23 Temperature 97 F L Pulse Rate 80 78 78 Respiratory Rate 20 18 Blood Pressure 154/109 H 152/91 H Pulse Oximetry 99 98 12/13/20 15:05 12/13/20 15:30 12/13/20 16:15 Temperature Pulse Rate 81 83 81 Respiratory Rate 18 18 18 Blood Pressure 135/69 129/78 129/83 Pulse Oximetry 99 99 100
[2020-12-14] MEDS: HYDROcodone/acetaminophen (*CRX) 5-325 MG TABLET 1 TAB PO (13:09)
--- NOTE | 2020-12-14 13:29 | PC.NURSE ---
On 12/14/20, the student, [Mary Moise], provided care and [facility]. I have reviewed the student's documentation and agree with the findings.
[2020-12-14 14:05] LABS: Partial Thromboplastin Time 32.2 SECONDS (22.3-36.8)
[2020-12-14 14:25] LABS: Beta HCG Quantitative 4.36 mIU/ML
[2020-12-14] MEDS: MORPHINE SULFATE (*CRX) 4 MG/ML INJ IV PUSH (20:43)
[2020-12-14 21:22] LABS: Partial Thromboplastin Time 35.1 SECONDS (22.3-36.8)
[2020-12-15] VITALS (25 sets, daily range): BP systolic 98–131; BP diastolic 56–86; PULSE 63–90; RESP 14–21; TEMP 35.6–36.9; O2SAT 96–99
[2020-12-15] MEDS: HEPARIN SODIUM 5,000 UNITS/ML VIAL 4000 UNITS IV PUSH (00:34)
[2020-12-15] MEDS: HEPARIN SOD/D5W 100 UNITS/ML 25,000 UNITS/250 ML BAG 16 UNITS IV CONT (00:35)
[2020-12-15] MEDS: diphenhydrAMINE HCl CAP 25 MG CAPSULE PO (00:35)
[2020-12-15] MEDS: MORPHINE SULFATE (*CRX) 4 MG/ML INJ IV PUSH ×3 (00:37→22:02)
[2020-12-15 05:35] LABS: Anion Gap 8 mmol/L (8-16); Blood Urea Nitrogen 12 mg/dL (7-17); Calcium 8.9 mg/dL (8.4-10.2); Carbon Dioxide 25 mmol/L (22-30); Chloride 105 mmol/L (98-107); Estimated CRCL calculation 99 ml/min; Estimated Glomerular Filt Rate > 60; Glucose 104 mg/dL (65-110); Potassium 3.8 mmol/L (3.4-5.0); Sodium 138 mmol/L (137-145)
[2020-12-15 06:41] LABS: Folic Acid 13.3 ng/mL (2.76->20)
--- NOTE | 2020-12-15 08:52 | PM.IMPN ---
Progress Note: A&P Assessment and Plan (1) Non-ST elevated myocardial infarction (non-STEMI): Code(s): I21.4 - Non-ST elevation (NSTEMI) myocardial infarction Status: Acute Assessment and Plan: Patient presents with chest pain. Troponin elevated to 0.82. EKG shows no acute findings but does show borderline T-wave changes. Cardiology has been consulted with plans for heart catheterization which is scheduled for today. Continue aspirin and metoprolol. Add Lipitor. She remains on heparin drip Some of her chest pain/back pain today with focal tenderness likely musculoskeletal in origin will put her on lidocaine patch and Flexeril (2) Hypertension: Code(s): I10 - Essential (primary) hypertension Status: Acute Assessment and Plan: Blood pressure remains well controlled. Will continue current medications. (3) Nicotine dependence: Code(s): F17.200 - Nicotine dependence, unspecified, uncomplicated Status: Acute Assessment and Plan: Patient was educated about the benefits of smoking cessation. (4) Left breast abscess: Code(s): N61.1 - Abscess of the breast and nipple Status: Acute Assessment and Plan: No evidence of breast abscess noted at this time. Suspect this is more sebaceous cyst that is drained. Agree with the primary care doctor request for patient follow-up with either breast surgeon or general surgeon to have these evaluated possibly excised. Patient voiced understanding of this. (5) Seizure: Onset Date: 2002 Code(s): R56.9 - Unspecified convulsions Status: Inactive Assessment and Plan: Patient has history of seizures. Patient is on treatment for seizures. She states the Topamax for headaches. Patient has been seizure-free for over 10 years. She has had some neurologic changes with left arm tremors. Consider focal seizures. Will consult Neurology. Check MRI and EEG. (6) Anxiety: Code(s): F41.9 - Anxiety disorder, unspecified Status: Acute Assessment and Plan: Mood remains stable. (7) DVT prophylaxis: Code(s): Z29.9 - Encounter for prophylactic measures, unspecified Status: Acute Assessment and Plan: Heparin drip Subjective Date/time seen: 12/15/20 08:52 Interval history: 50yo female with hx of seizure here for chest pain. Approximately 2 days prior to admission, she developed n/v mostly in the morning with SOB but no CP. On the day of admission, she again had these symptoms but then developed chest pain substernal that radiated to the jaw and left arm. She smokes 1/2ppd. She has HTN but not DM or HLD. She also has right breast cysts that drain whitish material associated with strong odor; left breast near the nipple also drains whitish mat'l but with blood occasionally. She has been told by her doctor to follow up wit a surgeon but has not done so yet. She also has had 3 episodes of left arm shaking and one episode when she felt like she spoke to a colleague but did not. She has hx of seizure but last one was 2004 - she is on Topamax for her headaches. She also states she fractures her right foot 1 month ago but pain much better (xray done elsewhere). Last mammogram was January 2020. Interval history: No overnight events. She reports he has been sore on her left side of the chest under her breast and similar area and the back. This pain is different from the chest pain that she presented with. There is no associated shortness of breath or nausea vomiting. Remains afebrile Review of Systems Review of Systems: All systems reviewed & are unremarkable except as noted in HPI and below Exam Narrative: Gen - NARD Chest -clear to auscultation bilaterally no respiratory distress Chest wall and enters scapular area and the back with local tenderness noted Breast -not examined CV - RRR S1/S2. Abd - Soft, NT/ND, Positive BS Ext - No pedal edema
[2020-12-15] MEDS: HYDROcodone/acetaminophen (*CRX) 5-325 MG TABLET 1 TAB PO ×2 (09:45→14:15)
--- NOTE | 2020-12-15 10:02 | WPDNEUROLOGY ---
Neurology EEG Report General Information Date of Study: 12/14/20 TEST eeg DIAGNOSIS left hand tremors CONDITION OF RECORDING awake drowsy and sleep EEG NUMBER [id number] CLINICAL HISTORY patient reported have had a heart attack yesterday and couple of small seizures EEG DESCRIPTION basic resting occipital frequency consists of large amount of well-organized medium voltage 9 to 11 hertz per 2nd alpha admixed with minimal amount of low-voltage 15 to 18 hertz per 2nd beta. During drowsiness low-voltage beta activity seen diffusely admixed with waxing and waning posterior alpha rhythm. Hyperventilation not done. Photic stimulation not done. Non paroxysmal. Nonfocal. Nonlateralizing. IMPRESSION Normal record
[2020-12-15] MEDS: FAMOTIDINE 20 MG TABLET PO ×2 (10:18→20:33)
[2020-12-15] MEDS: METOPROLOL TARTRATE 25 MG TABLET PO ×2 (10:18→20:33)
[2020-12-15] MEDS: TOPIRAMATE 25 MG TABLET PO ×2 (10:18→20:33)
[2020-12-15] MEDS: ASPIRIN 81 MG ENTERIC TABLET PO (10:18)
[2020-12-15] MEDS: DICYCLOMINE HCL 10 MG CAPSULE PO ×2 (10:18→15:53)
[2020-12-15] MEDS: LIDOCAINE 5% PATCH 1 PATCH TRANSDERM (10:22)
[2020-12-15 10:50] LABS: Partial Thromboplastin Time 62.6 SECONDS (22.3-36.8)
[2020-12-15] MEDS: HEPARIN SODIUM 5,000 UNITS/ML VIAL 3000 UNITS IV PUSH (11:14)
--- NOTE | 2020-12-15 13:26 | WPDNEURCNPN ---
Assessment and Plan Additional Plan 1. History of seizures. EEG is normal but patient is taking topiramate 25 mg b.i.d. it will be increased to50mg b.i.d. with the diagnosis of seizure disorder2. Chest pain cardiac catheterization has been done as documented Consult date: 12/15/20 HPI: Keely Domingo is a 50 year old female Admitted to the hospital for the complaints of chest pain in addition she carries the diagnosis of 1. Hypertension 2. Migraine 3. Patient was brought to the emergency room where the private vehicle she had been feeling well over the last 4 days with including random episodes of dizziness nausea and mild shortness of breath she had a visit with her primary care physician about 48 hours ago and was started on metoprolol for mild hypertension and hydroxyzine for her anxiety but she continued to have the similar symptoms she felt dizzy tremulous, her past history is consistent with as mentioned before hypertension migraine nicotine dependence and seizures and also shingles evaluation up until now includes x-ray chest negative, CT scan of the brain negative, normal routine labs except MCV of 102.8, patient has been seen by the material specialist as well with documentation of non STEMI, with plan for cardiac catheterization and patient is a smoker, routine EEG is normal, she did gave the history of 2 seizures in the last couple of weeks with description as upper extremity shaking with hallucination or followed by brief episodes of unresponsiveness without any incident tongue bite or bowel or bladder incontinence Review of Systems Review of Systems: All systems reviewed & are unremarkable except as noted in HPI and below PMFSH Past Medical History Medical History Anxiety Breast abscess Recurrent staph infections, per patient report, dating back to 2006. Diverticulitis Hypertension Migraine headache Nicotine dependence Seizure (2002) Shingles Surgical History Surgical History History of dilation and curettage History of hysterectomy History of incision and drainage Breast abscess. History of laparoscopy With destruction of right ovarian cyst. Family History Family History Mother Depression Family history of eczema Patient's mother is in good health Cerebrovascular accident Asthma Father Patient's father is in good health Family history of hearing loss Sibling Patient's sister is in good health Patient's brother is in good health Grandparent Family history of malignant neoplasm Other Family history of alcoholism Social History Social History Social History: Surrogate decision maker: Kary Moreno, partner. Code status: Full code. Smoking packs per day: 0.75 Smoking cigarettes per day: 15.0 Years smoked: 30 Smoking pack-years: 22.50 Smoking status: Current every day smoker Alcohol intake: current Drinks per week: 20 Alcohol use details: Beer. Substance use: current Substance use type: marijuana Additional living arrangements comments: The patient lives in [place] with her partner. She has an adult daughter. 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 Spiritual care concerns: No Meds Home Medications and Allergies Home Medications Medication Instructions Recorded Confirmed Type acetaminophen 500 mg PO Q6H PRN #30 cap 06/17/19 12/13/20 Rx dicyclomine 10 mg PO BID 10 Days #20 cap 06/17/19 12/13/20 Rx diphenhydramine HCl [Benadryl] 25 mg PO TID PRN 12/13/20 12/13/20 History meloxicam 15 mg PO DAILY PRN 12/13/20 12/13/20 History metoprolol tartrate 25 mg PO BID 12/13/20 12/13/20 History topiramate 25 mg PO BID 12/13/20 12/13/20 History Allergies Allergy/AdvReac Type Severity Reaction Status Date / Time aspirin AdvReac Unknown Nausea and Verified
--- NOTE | 2020-12-15 13:27 | P.PCNCC_ITS ---
Cardiac Cath Procedure Note Date of procedure:: 12/15/20 Performing physician:: Gus Edge MD Indication:: Chest pain troponin elevation Brief clinical history:: this is a 50-year-old woman without any previous known history of cardiac disease. She entered the hospital after experiencing some chest pain and had a modest rise in her troponin level. ECG did not show any evidence of acute myocardial injury. In this setting angiography has been recommended. The patient is morbidly obese. Procedure Procedure performed:: Left ventriculogram coronary angiogram Angio-Seal to right femoral artery Sedation/Medication given:: fentanyl 50 mg Versed 2 mg case start time 1:03 p.m. case end time 1:24 p.m. sedation provided by Meredith Minor RN, trained observer Access site:: right femoral artery Estimated blood loss:: 15 cc Procedure note:: patient was brought to the cardiac catheterization lab in the postabsorptive state the right femoral triangle was prepared and draped in fashion. Anesthesia was provided with 1% lidocaine infiltrated locally. Using a modified Seldinger technique I punctured the right femoral artery and placed in 5 Salvadorean vascular sheath. After this left heart catheterization was carried out. I used a 5 Salvadorean angled pigtail catheter to inject the left ventricle in the HENLSEY projection and to document left-sided hemodynamics. After this I engaged and injected the left coronary artery using a standard 5 Salvadorean FL4 catheter. I then used a 5 Salvadorean JR4 catheter to engage and inject the right coronary in the THAI projection in the HENSLEY projection I used a 5 Salvadorean WRP catheter. After this the cineangiograms were reviewed and the case was terminated. The patient had angiogram done of the femoral artery through the sheath after which I placed an Angio-Seal device with good hemostatic result. Procedure was well tolerated and without complication she left the rn cardiac cath with no evidence of groin hematoma. Findings:: Hemodynamics: Central aortic pressure is 108 over 60 left ventricle 108 over 15 end-diastolic pressure 22 gradient on pullback across the aortic valve. Left ventricle: The left ventricle is modestly enlarged the anterior 1/3 of the left ventricle is moderately hypodynamic including the mid anterior wall apex and apical inferior wall. Basal segments contract normally. The left main coronary artery is widely patent the left anterior descending is a moderate caliber artery extending down to the apex and around the apex the LAD is smooth and angiographically normal. The circumflex is a moderate caliber artery giving rise to the marginal branches the circumflex system is smooth and angiographically normal. The right coronary artery is dominant to the posterior circulation being dominant is a small to medium caliber vessel. The vessel is angiographically normal. There was some catheter-induced spasm at the origin of the artery which was of no clinical consequence the patient had no chest pain or ST segment changes. Conclusion:: 1. Right coronary dominant circulation with no angiographic evidence of coronary disease 2. mid anterior, anteroapical, apical and apical inferior hypokinesia pattern relatively typical of takotsubo cardiomyopathy. 3. Angio-Seal to right femoral artery Gus Edge MD [facility]
--- NOTE | 2020-12-15 13:35 | SUR.PHASEII ---
BEGIN PHASE II RECOVERY S/P [place] W/ DR. MONREAL. 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 ORIENTED TO ROOM, PLAN OF CARE, ACTIVITY RESTRICTIONS POST CATH, BEDREST X 2 HOURS. R. GROIN PUNCTURE SITE CLOSED W/ ANGIOSEAL AND AREA COVERED W/ C/D/I GAUZE AND TEGADERM DRESSING. SITE SOFT, NONTENDER. NO BLEEDING OR HEMATOMA NOTED. R. PEDAL PULSE PALP STRONG. IVF'S RUNNING ORDERED. DENIES CP OR SOB, BUT C/O ONGOING L. LATERAL RIB CAGE, L. BREAST TO L. BACK SPASM STABBING SHARP PAIN. STATES HAS BEEN HAVING SINCE PRIOR TO CATH, BUT IS NOW ENHANCED DUE TO BEDREST. I WOULD GET UP AND MOVE AROUND TO RELIEVE IT BEFORE . ENCOURAGED DEEP BREATHING AND RELAXATION. WARM BLANKET APPLIED TO SITE. NOTIFIED EDEN LINDER NP OF C/O. WILL CONTINUE TO MONITOR. VSS.
--- NOTE | 2020-12-15 14:15 | SUR.PHASEII ---
PRN PAIN MED NORCO 5/325 MG GIVEN PO FOR C/O PAIN L. LATERAL CHEST. NO CHANGE IN R. GROIN SITE. WILL CONTINUE TO MONITOR.
--- NOTE | 2020-12-15 14:29 | PC.NURSE ---
On 12/15/20, the student, [Angeline Jaramillo], provided care and completed [facility] documentation on this patient. I have reviewed the student's documentation and agree with the findings.
--- NOTE | 2020-12-15 14:40 | SUR.PHASEII ---
REPORTS PAIN IS MINIMALLY IMPROVED TO L. LATERAL CHEST/ RIB CAGE AREA. WILL CONTINUE TO MONITOR.
--- NOTE | 2020-12-15 14:55 | SUR.PHASEII ---
ATTEMPTED TO CALL REPORT TO IMU RN. UNABLE TO TAKE AT THIS TIME. AWAIT RETURN CALL.
--- NOTE | 2020-12-15 15:25 | SUR.PHASEII ---
CALL RECEIVED FROM LISSETT JAVIER IN IMU. REPORT GIVEN. PT. TO RETURN TO U 202. NO CHANGE IN Flor GOMEZ SITE STATUS.
--- NOTE | 2020-12-15 15:27 | SUR.PHASEII ---
END PHASE II RECOVERY. RETURNED TO IMU 202 VIA STRETCHER ON TELE MONITOR. VSS. NO CHANGE IN R. GROIN SITE. IVF'S CONTINUE. SITE CHECK Wyatt/ LISSETT JAVIER AT BEDSIDE.
[2020-12-15] MEDS: CYCLOBENZAPRINE HCL 5 MG TABLET PO (15:51)
[2020-12-15] MEDS: SODIUM CHLORIDE 0.9% IV 1,000 ML 125 ML IV CONT (15:51)
[2020-12-15] MEDS: ATORVASTATIN 40 MG TABLET PO (15:53)
--- NOTE | 2020-12-15 20:36 | PC.NURSE ---
This patient, Keely Domingo, was transferred to [facility] on 12/15/20 at 2009. Personal belongings sent with patient. Report given to [ ]. Appropriate documentation sent with patient.
[2020-12-16] MEDS: MORPHINE SULFATE (*CRX) 4 MG/ML INJ IV PUSH (00:12)
[2020-12-16] MEDS: CYCLOBENZAPRINE HCL 5 MG TABLET PO (00:12)
[2020-12-16 00:29] VITALS: BP 107/65; PULSE 77; RESP 18; TEMP 36.2; O2SAT 97
[2020-12-16 04:29] VITALS: BP 123/66; PULSE 76; RESP 18; TEMP 35.4; O2SAT 97
[2020-12-16] MEDS: ACETAMINOPHEN 500 MG TABLET PO (07:28)
[2020-12-16] MEDS: DICYCLOMINE HCL 10 MG CAPSULE PO (07:29)
[2020-12-16] MEDS: FAMOTIDINE 20 MG TABLET PO (07:30)
[2020-12-16] MEDS: TOPIRAMATE 25 MG TABLET PO (07:32)
[2020-12-16] MEDS: LIDOCAINE 5% PATCH 1 PATCH TRANSDERM (07:32)
[2020-12-16] MEDS: HYDROcodone/acetaminophen (*CRX) 5-325 MG TABLET 1 TAB PO ×2 (07:36→13:02)
--- NOTE | 2020-12-16 08:51 | ECHO_ITS ---
Patient Info Name: Keely Domingo Age: 50 years : 1970 Gender: Female Ht: 60 in Wt: 266 lbs BSA: 2.34 m2 HR: 70 bpm BP: 123 / 66 mmHg Heart Rhythm: Sinus Rhythm Technical Quality: Fair Exam Date: 12/16/2020 12:01 PM Exam Location: [facility] Pulmonary Exam Room: 300 Patient Status: Inpatient Admit Date: 12/14/2020 Staff Ordering Physician: Vimal Hager MD Armhole Sewer: Letty Johnson RDCS Attending Provider: Prema Galvin MD Referring Physician: Alley MARTIN; Exam Type: CA echo doppler color flow Study Info Indications - nstemi chest pain takotsubo cm s/p cath Complete two-dimensional, color flow and Doppler transthoracic echocardiogram is performed. Summary 1. Complete two-dimensional, color flow and Doppler transthoracic echocardiogram is performed. 2. Left ventricular chamber dimension is normal. 3. Left ventricular systolic function is lower limits of normal, estimated at 50-55%. Mild apical, apical septal, and apical anterior hypokinesis. 4. There is no increased left ventricular wall thickness. 5. The left ventricular diastolic function is grade II diastolic dysfunction. 6. Left atrial chamber dimension is mildly enlarged. 7. Right ventricular chamber dimension is normal. 8. Right ventricular systolic function is normal. 9. Mild right ventricular hypertrophy and echogenicity of RV free wall. 10. There is mild mitral valve regurgitation. 11. There is trace tricuspid valve regurgitation. 12. No pulmonary hypertension, estimated pulmonary arterial systolic pressure is 30 mmHg. Left Ventricle Left ventricular chamber dimension is normal. Left ventricular systolic function is lower limits of normal, estimated at 50-55%. Mild apical, apical septal, and apical anterior hypokinesis. There is no increased left ventricular wall thickness. The left ventricular diastolic function is grade II diastolic dysfunction. Right Ventricle Right ventricular chamber dimension is normal. Right ventricular systolic function is normal. Mild right ventricular hypertrophy and echogenicity of RV free wall. Left Atria Left atrial chamber dimension is mildly enlarged. Right Atria Right atrial chamber dimension is mildly enlarged. Aortic Valve The aortic valve is not well visualized. There is no aortic valve stenosis. There is no aortic valve regurgitation. Pulmonic Valve The pulmonic valve is not well visualized. Mitral Valve The mitral valve has normal leaflets. There is mild mitral valve regurgitation. Tricuspid Valve The tricuspid valve leaflets are normal. There is trace tricuspid valve regurgitation. No pulmonary hypertension, estimated pulmonary arterial systolic pressure is 30 mmHg. Pericardium/Pleural The pericardium appears normal. There is trivial pericardial effusion. Inferior Vena Cava Normal inferior vena cava with >50% collapse upon inspiration consistent with normal right atrial pressure, 5 mmHg. Aorta The aortic root size at the sinus of Valsalva is normal. Left Ventricular Outflow Tract Name Value Normal LVOT 2D LVOT Diameter 2.0 cm LVOT Doppler
[2020-12-16 10:23] VITALS: PULSE 76
[2020-12-16] MEDS: ASPIRIN 81 MG ENTERIC TABLET PO (10:23)
[2020-12-16] MEDS: METOPROLOL SUCCINATE EXT REL 25 MG TABCR PO (10:23)
[2020-12-16] MEDS: ATORVASTATIN 40 MG TABLET PO (10:23)
--- NOTE | 2020-12-16 11:50 | PM.PNCARD ---
Progress Note: A&P Assessment and Plan (1) Takotsubo cardiomyopathy: Code(s): I51.81 - Takotsubo syndrome Status: Acute Assessment and Plan: Normal coronary anatomy on left heart catheterization with evidence of LV dysfunction and wall motion abnormalities at the apex with preservation of the basal segments suggestive of probable takotsubo cardiomyopathy. Continue medical therapy. Metoprolol tartrate changed to metoprolol succinate 25 mg daily. Continue EDDIE-inhibitor. BP control. Lifestyle modification counseling. Explained the pathophysiology and likely clinical explanation in detail. Also discussed the expectations her LV function will improve and or normalize in the near future. Discussed importance of follow-up as an outpatient, compliance with medications, recommendations and plans for repeat echocardiogram as an outpatient. Patient stable for discharge home today, however, I would like review 2D echocardiogram prior to discharge for completeness. Patient in agreement. Provided no new additional concerning pathology anticipate discharge home later today. Counseled extensively on post cardiac catheterization precautions including but not limited to 10 lb weight restriction for the next week, no sexual or strenuous activity, minimization of stress, no straining cetera. Counseled on how to monitor for bleeding, hematoma complications and red flag symptoms such as cold painful leg and severe pain in right groin. Counseled she must notify us and/or present to the ER via EMS should she note active bleeding or enlarging hematoma. Anticipate after discharge follow-up with Dr. Dhillon within 1 month. All questions answered to her satisfaction. Patient verbalized understanding and agreed to comply with plan of care. I advised her to take off from work at least the next 5-7 days if possible. (2) Elevated troponin: Code(s): R77.8 - Other specified abnormalities of plasma proteins Status: Acute Assessment and Plan: As above, normal coronary anatomy secondary to cardiomyopathy presumably takotsubo etiology, although history not suggestive of recent illness or trauma. She is under a great deal of stress generally she states with her work. (3) Hypertension: Code(s): I10 - Essential (primary) hypertension Status: Acute Assessment and Plan: BP stable. Continue medical therapy. Subjective Date/time seen: Date of service: 12/16/20 11:50 Follow-up for elevated troponin, chest pain status post coronary angiogram No recurrent chest pain. Patient denies significant shortness of breath. A little tired but improving overall. A little sore at right groin arterial access site. She admits she strained with her BM this morning but no new concerns. No dizziness, fevers, chills or palpitations. No new issues overnight. Review of Systems Review of Systems: All systems reviewed & are unremarkable except as noted in HPI and below Constitutional: Constitutional: Reports as per HPI, Reports no additional constitutional complaints and Reports fatigue Eyes: Eyes: Reports as per HPI and Reports no additional eye complaints ENT: Reports system reviewed and no additional complaints, except as documented and Reports as per HPI Cardiovascular: Cardiovascular: Reports as per HPI and Reports no additional cardiovascular complaints Respiratory: Respiratory: Reports as per HPI and Reports no additional respiratory complaints Gastrointestinal: Gastrointestinal: Reports as per HPI and Reports no additional gastrointestinal complaints Genitourinary: Genitourinary: Reports as per HPI Musculoskeletal: Musculoskeletal: Reports no additional musculoskeletal complaints and Reports as per HPI Integumentary/Breasts: Skin/Breast: Reports system reviewed and no additional complaints, except as docu and Reports as per HPI Neurologic: Reports system reviewed and no additional complaints, except as documented and Reports
--- NOTE | 2020-12-16 14:56 | PM.DS ---
DS: Admitting Diagnosis Discharge Date 12/16/2020 Admitting Diagnosis chest pain DS: Discharge Diagnosis Discharge Diagnosis (1) Non-ST elevated myocardial infarction (non-STEMI): Code(s): I21.4 - Non-ST elevation (NSTEMI) myocardial infarction Status: Acute Assessment and Plan: Patient presents with chest pain. Troponin elevated to 0.82. EKG shows no acute findings but does show borderline T-wave changes. Cardiology has been consulted. She was started on aspirin and metoprolol. Also added Lipitor Status post cardiac catheterization on 12/15/2020 showed mid anterior, anterior apical, apical and apical inferior hypokinesis pattern relatively typical of takotsubo cardiomyopathy She has added on EDDIE inhibitor and beta-jackie to continue Echocardiogram was done on 12/16/2020 which showed EF of 50-55% mid apical, apical septal and apical anterior hypokinesis noted. CT chest abdomen was done for further events back pain which came back negative for any acute pathology except for 5 mm nonobstructing left renal stone (2) Hypertension: Code(s): I10 - Essential (primary) hypertension Status: Acute Assessment and Plan: Blood pressure remains well controlled. Will continue current medications. (3) Nicotine dependence: Code(s): F17.200 - Nicotine dependence, unspecified, uncomplicated Status: Acute Assessment and Plan: Patient was educated about the benefits of smoking cessation. (4) Left breast abscess: Code(s): N61.1 - Abscess of the breast and nipple Status: Acute Assessment and Plan: No evidence of breast abscess noted at this time. Suspect this is more sebaceous cyst that is drained. Agree with the primary care doctor request for patient follow-up with either breast surgeon or general surgeon to have these evaluated possibly excised. Patient voiced understanding of this. (5) Seizure: Onset Date: 2002 Code(s): R56.9 - Unspecified convulsions Status: Inactive Assessment and Plan: Patient has history of seizures. Patient is on treatment for seizures. She states the Topamax for headaches. Patient has been seizure-free for over 10 years. She has had some neurologic changes with left arm tremors. Consider focal seizures. neurology consulted and suggested increasing Topamax to 50 mg twice a day (6) Anxiety: Code(s): F41.9 - Anxiety disorder, unspecified Status: Acute Assessment and Plan: Mood remains stable. (7) DVT prophylaxis: Code(s): Z29.9 - Encounter for prophylactic measures, unspecified Status: Acute Assessment and Plan: Heparin drip while hospitalization DS: Summary Hospital Course Hospital Course: see above Time Spent with Patient Time attestation: Total time spent providing and/or coordinating discharge services:45 minutes Exam Narrative: Gen - NARD Chest -clear to auscultation bilaterally no respiratory distress Chest wall and enters scapular area and the back with local tenderness noted Breast -not examined CV - RRR S1/S2. Abd - Soft, NT/ND, Positive BS Ext - No pedal edema no cyanosis or clubbing Neuro - Alert and oriented. No gross motor deficits Psych - Nml mood and affect Skin - Warm and dry no rash DS: Data Data Completed and Pending Completed studies during hospitalization: Exam Date: 12/16/2020 12:01 PM Exam Location: [facility] Pulmonary Exam Room: [facility] Patient Status: Inpatient Admit Date: 12/14/2020 Staff Ordering Physician: Vimal Hager MD Front Sight Attacher: Letty Johnson RDCS Attending Provider: Prema Galvin MD Referring Physician: Alley MARTIN; Exam Type: CA echo doppler color flow Study Info Indications - nstemi chest pain takotsubo cm s/p cath Complete two-dimensional, color flow and Doppler transthoracic echocardiogram is performed. Account #:
== END 2020-12-16 16:20 | disposition home or self-care (01) | DRG 192 ==
LOC: ANHED 17:10 → ANHIMU 18:46 → ANH3MEDSUR 12-15 22:36 → ANHIMU 12-19 12:34
PROVIDERS: Internal Medicine; Internal Medicine Cardiovascular Disease; Physician Assistant; Specialist; Admitting Provider Hospitalist; Emergency Provider Emergency Medicine; PCP Internal Medicine Infectious Disease; Visit Provider Internal Medicine
PROC: 4A023N7 Measurement of Cardiac Sampling and Pressure, Left Heart, Percutaneous Approach (ICD-10-PCS; CPT 93452; principal; 2020-12-15 13:00)
PROC: 4A023N7 Measurement of Cardiac Sampling and Pressure, Left Heart, Percutaneous Approach (ICD-10-PCS; 2020-12-15 13:00)
DX: I51.81 Takotsubo syndrome (principal); I42.8 Other cardiomyopathies; N60.82 Other benign mammary dysplasias of left breast; I10 Essential (primary) hypertension; R56.9 Unspecified convulsions; F41.9 Anxiety disorder, unspecified; F17.210 Nicotine dependence, cigarettes, uncomplicated; F10.20 Alcohol dependence, uncomplicated; E66.01 Morbid (severe) obesity due to excess calories; Z68.43 Body mass index [BMI] 50.0-59.9, adult; Z90.710 Acquired absence of both cervix and uterus
CPT/HCPCS: 36415; 70450; 71046; 71250; 74176; 80048; 80053; 80061; 82607; 82746; 83036; 83735; 84443; 84484; 84702; 85025; 85610; 85730; 93005; 93306; 93458; 95816; 96361; 96365; 96366; 96375; 99285; A9270; C1760; C1887; C1894; G0269; G0378; G0379; J1644; J1885; J2250; J2270; J3010; J7030; J7040

== ENCOUNTER 2021-03-12 15:53 | Outpatient (CLI) | payer OTHER, SELFPAY ==
--- NOTE | ~2021-03-12 | MR_ITS ---
EXAMINATION: MR brain/brain stem wo con EXAM DATE: 03/12/2021 16:35 INDICATION: Dizziness And Giddiness. Episodes of loosening attenuation during conversation with queta palacios, symptoms for 2 months. TECHNIQUE: Magnetic resonance imaging (MRI) of the brain/brain stem obtained without contrast. Sagitt al T1, axial diffusion, gradient echo (T2*), T1, T2, FLAIR sequences obtained. There is no prior st udy for comparison. FINDINGS: The cerebellar tonsils appear to extend about 6 mm below the foramen magnum, just meeting c riteria for Chiari I malformation. No upper cervical syrinx. There are no areas of restricted diffusi on to suggest acute infarction. There is no acute hemorrhage seen on the T2*, a hemosiderin sensitiv e sequence. No intraparenchymal brain mass. The ventricles are normal in size. There are no extra-a xial collections. Flow voids are seen in the cerebral arteries on the T2-weighted sequences consiste nt with their expected patency. The orbits are unremarkable. Soft tissue is unremarkable. IMPRESSION: Chiari I malformation. Reviewed, dictated and finalized at location [facility] IMPRESSION: Chiari I malformation.
== END 2021-03-12 15:54 | disposition home or self-care (01) ==
LOC: ANHIMG 15:56
PROVIDERS: PCP Internal Medicine Infectious Disease; Visit Provider Internal Medicine Infectious Disease
DX: R42 Dizziness and giddiness (principal); G93.5 Compression of brain
CPT/HCPCS: 70551